=== PATIENT | female | born 1995 | race Caucasian/White ===

== ENCOUNTER → 2016-08-17 | Outpatient (CLI) | payer OTHER ==
--- NOTE | 2016-08-17 11:14 | RAD ---
Lumbar spine, 5 views, 08/17/2016: History: Low back pain No fracture or dislocation is identified. There is no evidence of spondylolysis. The intervertebral disc spaces are well-maintained. An IUD is projected over the pelvis near the midline. IMPRESSION: No acute lumbar spine abnormality is detected.
== END | disposition home or self-care (01) ==
LOC: DXRADRC 10:45
PROVIDERS: ATTEND Nurse Practitioner Family
DX: M54.5 Low back pain (principal)
CPT/HCPCS: 72110

== ENCOUNTER → 2021-07-27 | Outpatient (CLI) | payer MEDICAID ==
--- NOTE | 2021-07-27 13:18 | RAD ---
EXAM: Chest, 2 views. HISTORY: Chest tightness. Shortness of breath. COMPARISON: None. FINDINGS: 2 views of the chest are obtained. There is no infiltrate, pleural effusion or pneumothorax . The heart is normal in size. IMPRESSION: No acute pulmonary finding. Electronically signed by: Elizabeth Tejeda MD (07/27/2021 1:16 PM) [id number]
== END ==
LOC: RAD 11:46
PROVIDERS: ATTEND Nurse Practitioner
DX: R07.89 Other chest pain (principal)
CPT/HCPCS: 71046